=== PATIENT | male | born 1980 | race Caucasian/White ===

== ENCOUNTER 2017-04-24 08:46 | Emergency (ER) | payer BC ==
[2017-04-24 09:02] VITALS: RESP 20; TEMP 97.6; O2SAT 98
[2017-04-24 09:56] LABS: BASOPHILS % (AUTO) 1 % (0-3); EOSINOPHILS % (AUTO) 2 % (0-9); HEMATOCRIT 43 % (39-53); MEAN CORPUSCULAR HGB CONC 34.7 gm/dl (32.0-36.0); MEAN CORPUSCULAR VOLUME 84 fL (80-100); MONOCYTES % (AUTO) 8.6 % (0-12); NEUTROPHILS % (AUTO) 74.9 % (37-80)
[2017-04-24 11:17] VITALS: BP 143/71; PULSE 72
== END 2017-04-24 10:47 | disposition home or self-care (01) ==
LOC: ED 08:46
DX: M25.571 Pain in right ankle and joints of right foot (principal); S61.210A Laceration without foreign body of right index finger without damage to nail, initial encounter
CPT/HCPCS: 36415; 84550; 85025; 99282